=== PATIENT | male | born 1990 | race African-American/Black ===

== ENCOUNTER 2020-10-15 22:40 | Inpatient (IN) | payer OTHER ==
[2020-10-15] MEDS ORDERED: KETOROLAC TROMETHAMINE 60 MG/2 ML VIAL IM ONE (23:30)
[2020-10-15] MEDS ORDERED: LIDOCAINE 5% TOPICAL PATCH TP ONE (23:30)
[2020-10-15] MEDS ORDERED: diazePAM 5 MG TABLET PO ONE (23:31)
[2020-10-15] MEDS ORDERED: diazePAM 5 MG TABLET ONE (23:51)
[2020-10-15] MEDS ORDERED: KETOROLAC TROMETHAMINE 60 MG/2 ML VIAL ONE (23:51)
[2020-10-15] MEDS ORDERED: LIDOCAINE 5% TOPICAL PATCH ONE (23:52)
[2020-10-16] MEDS ORDERED: DEXAMETHASONE SOD PHOSPHATE 10 MG/1 ML VIAL IVPUSH ONE (01:08)
[2020-10-16] MEDS ORDERED: DEXAMETHASONE SOD PHOSPHATE 10 MG/1 ML VIAL ONE ×2 (02:21→08:27)
[2020-10-16 02:34] LABS: BASO % 1.4 % (0-2.0); HEMATOCRIT 37.8 % (35.4-49); HEMOGLOBIN 13.4 GM/dL (11.7-16.9); LYMPH % 34.6 % (8-40); MCH 31.7 pg (25.7-33.7); MCHC 35.4 g/dl (32.0-35.9); MEAN CELL VOLUME 89.7 fl (80-96); PLATELET COUNT 213 10^3/uL (134-434); RBC 4.21 M/mm3 (4.00-5.60); RDW 12.7 % (11.9-15.9); WHITE BLOOD COUNT 6.1 K/mm3 (4.0-10.0)
[2020-10-16 02:55] LABS: BLOOD UREA NITROGEN 17.5 mg/dL (7-18); CALCIUM 8.7 mg/dL (8.5-10.1)
[2020-10-16 02:56] LABS: ALBUMIN 4.2 g/dl (3.4-5.0)
[2020-10-16 02:58] LABS: CREATININE 1.2 mg/dL (0.55-1.3)
[2020-10-16 03:00] LABS: BILIRUBIN,TOTAL 0.4 mg/dL (0.2-1); TOT PROT 7.3 g/dl (6.4-8.2)
[2020-10-16] MEDS ORDERED: DEXAMETHASONE SOD PHOSPHATE 10 MG/1 ML VIAL IVPUSH SCH (09:00)
[2020-10-16] MEDS ORDERED: LIDOCAINE PATCH REMOVAL MC ONE (11:00)
[2020-10-16 14:58] LABS: PH,URINE 6.5 (5.0-8.0); URINE APPEARANCE CLEAR; URINE BILIRUBIN NEGATIVE (NEGATIVE); URINE COLOR YELLOW; URINE GLUCOSE (UA) NEGATIVE (NEGATIVE); URINE KETONE NEGATIVE (NEGATIVE); URINE LEUK ESTERASE NEGATIVE (NEGATIVE); URINE NITRITE NEGATIVE (NEGATIVE); URINE PROTEIN NEGATIVE (NEGATIVE); URINE UROBILINOGEN 0.2 mg/dL (0.2-1.0)
[2020-10-16] MEDS ORDERED: LIDOCAINE 5% TOPICAL PATCH TP ONE (21:36)
[2020-10-16] MEDS ORDERED: diazePAM 5 MG TABLET PO ONE (21:41)
[2020-10-16] MEDS ORDERED: KETOROLAC TROMETHAMINE 30 MG/1 ML VIAL IVPB ONE (21:42)
[2020-10-16] MEDS ORDERED: LIDOCAINE 5% TOPICAL PATCH ONE (22:14)
[2020-10-16] MEDS ORDERED: diazePAM 5 MG TABLET ONE (22:14)
[2020-10-16] MEDS ORDERED: KETOROLAC TROMETHAMINE 30 MG/1 ML VIAL ONE (22:15)
[2020-10-17 00:56] VITALS: BMI 28.5
[2020-10-17] MEDS ORDERED: traMADol HCL 50 MG TABLET PO PRN (06:00)
[2020-10-17] MEDS ORDERED: ACETAMINOPHEN 325 MG TABLET (FP) PO PRN (08:57)
[2020-10-17] MEDS ORDERED: PT OWN MED DRAWER 7, Y5N ONE ×2 (09:14→10:44)
[2020-10-17] MEDS ORDERED: methylPREDNISolone 8 MG TABLET PO ONE (10:00)
[2020-10-17] MEDS ORDERED: LIDOCAINE PATCH REMOVAL MC SCH (10:00)
[2020-10-17] MEDS ORDERED: methylPREDNISolone 4 MG TABLET PO ONE (10:00)
[2020-10-17 11:30] LABS: HEMATOCRIT 38.6 % (35.4-49); HEMOGLOBIN 13.3 GM/dL (11.7-16.9); MCH 31.4 pg (25.7-33.7); MCHC 34.6 g/dl (32.0-35.9); MEAN CELL VOLUME 90.7 fl (80-96); MEAN PLT VOLUME 8.4 fl (7.5-11.1); PLATELET COUNT 207 10^3/uL (134-434); RBC 4.25 M/mm3 (4.00-5.60); WHITE BLOOD COUNT 9.6 K/mm3 (4.0-10.0)
[2020-10-17 11:51] LABS: CALCIUM 8.9 mg/dL (8.5-10.1)
[2020-10-17 11:52] LABS: ALBUMIN 3.8 g/dl (3.4-5.0); BLOOD UREA NITROGEN 19.5 mg/dL (7-18); MAGNESIUM 2.5 mg/dL (1.8-2.4)
[2020-10-17 11:56] LABS: BILIRUBIN,TOTAL 0.6 mg/dL (0.2-1); PHOSPHOROUS 3.6 mg/dL (2.5-4.9); TOT PROT 6.9 g/dl (6.4-8.2)
[2020-10-17 14:36] VITALS: BP 114/84; PULSE 72; TEMP 98.5
== END 2020-10-17 18:11 | disposition home or self-care (01) | DRG 347 ==
LOC: JER 22:40 → JERBED 10-16 01:19 → J6S 10-16 23:03
PROVIDERS: ADMIT Internal Medicine; ATTEND Internal Medicine
DX: M51.26 Other intervertebral disc displacement, lumbar region (principal)
CPT/HCPCS: 36415; 72131-TC; 72148-TC; 80053; 81003; 83735; 84100; 85025; 85027; 93005; 93010; 97116-GP; 97162-GP; 99285-25; C9803; J1100; U0003; U0005

== ENCOUNTER 2023-11-03 12:16 | Emergency (ER) | payer OTHER ==
[2023-11-03 12:21] VITALS: BP 120/62; PULSE 75; RESP 18; TEMP 98.7; BMI 26.3
[2023-11-03] MEDS ORDERED: BACITRACIN ZINC 15 GM TUBE TOPICAL OINTMENT ONE (12:27)
[2023-11-03] MEDS ORDERED: IBUPROFEN 600 MG TABLET (FP) PO ONE (13:02)
[2023-11-03] MEDS ORDERED: ACETAMINOPHEN 500 MG TABLET (FP) ONE (13:03)
[2023-11-03] MEDS: ACETAMINOPHEN 500 MG TABLET (FP) PO ONE (13:04)
[2023-11-03] MEDS: IBUPROFEN 600 MG TABLET (FP) PO ONE (13:04)
== END 2023-11-03 14:30 | disposition home or self-care (01) ==
LOC: JERFT 12:16
PROC: 0HQ0XZZ Repair Scalp Skin, External Approach (ICD-10-PCS; principal; 2023-11-03)
DX: S01.01XA Laceration without foreign body of scalp, initial encounter (principal); M25.551 Pain in right hip; Y04.8XXA Assault by other bodily force, initial encounter
CPT/HCPCS: 73502-TC-RT-FY; 99283-25

== ENCOUNTER 2023-11-18 11:05 | Emergency (ER) | payer OTHER ==
[2023-11-18 11:12] VITALS: BP 112/72; PULSE 68; RESP 20; TEMP 97.8; BMI 26.3
[2023-11-18] MEDS: BACITRACIN ZINC 15 GM TUBE TOPICAL OINTMENT TP ONE (11:43)
== END 2023-11-18 11:44 | disposition home or self-care (01) ==
LOC: JERFT 11:05
DX: Z48.02 Encounter for removal of sutures (principal)
CPT/HCPCS: 99281-25